=== PATIENT | male | born 1980 ===

== ENCOUNTER 2019-05-26 10:28 | Outpatient (CLI) | payer OTHER | END 2019-05-26 10:31 | disposition home or self-care (01) | LOC: RAD 10:28 | DX: S22.41XA Multiple fractures of ribs, right side, initial encounter for closed fracture (principal); S22.49XA Multiple fractures of ribs, unspecified side, initial encounter for closed fracture; S29.9XXA Unspecified injury of thorax, initial encounter ==

== ENCOUNTER 2019-07-07 11:14 | Outpatient (CLI) | payer OTHER | END 2019-07-07 11:16 | disposition home or self-care (01) | LOC: SONOGRAMA 11:14 | DX: M54.5 Low back pain (principal); I10 Essential (primary) hypertension; Z01.810 Encounter for preprocedural cardiovascular examination; E03.8 Other specified hypothyroidism; E78.49 Other hyperlipidemia; E11.51 Type 2 diabetes mellitus with diabetic peripheral angiopathy without gangrene; E55.9 Vitamin D deficiency, unspecified; F41.8 Other specified anxiety disorders; A60.1 Herpesviral infection of perianal skin and rectum ==

== ENCOUNTER 2020-09-29 14:05 | Outpatient (CLI) | payer OTHER | END 2020-09-29 15:07 | disposition home or self-care (01) | LOC: RAD 14:05 | PROVIDERS: ATTEND Internal Medicine | DX: M54.5 Low back pain (principal); I10 Essential (primary) hypertension; Z01.810 Encounter for preprocedural cardiovascular examination; E03.8 Other specified hypothyroidism; E78.89 Other lipoprotein metabolism disorders; E11.51 Type 2 diabetes mellitus with diabetic peripheral angiopathy without gangrene; E55.9 Vitamin D deficiency, unspecified; A60.01 Herpesviral infection of penis; F41.9 Anxiety disorder, unspecified; N41.0 Acute prostatitis; J06.9 Acute upper respiratory infection, unspecified; K74.00 Hepatic fibrosis, unspecified ==